=== PATIENT | female | born 1960 | race Caucasian/White ===

== ENCOUNTER 2022-06-19 18:14 | Emergency (ER) | payer OTHER ==
--- NOTE | 2022-06-19 20:28 | ERPHSYRPT ---
- History of Present Illness Historian: patient Exam Limitations: no limitations Patient Subjective Stated Complaint: pt states "My stomach has been hurtin off and on. I think it is my gallbladder." Triage Nursing Assessment: Pt alert and oriented x3, pt alert and oriented x3, skin pwd, pt c/o diffuse abd pain, diarrhea and back pain intermittently for a week, pt afebrile, pt has hx of appendectomy, pt slightly hypertensive in triage, pt's last meal was 1730 Physician History: 61 yo wf w diffuse abdominal pain x 10 days. Pain is sharp/burning and 7/10 at present. It is better in L lateral decubitus position. She has had nausea/diarrhea wo vomiting. She denies melena/hematochezia/fever/dysuria/hematuria. Pt states that she has some pain in her back and occ has sub-xyphoid pain. She has had an appy and BTL. Timing/Duration: other (10 days) Activities at Onset: rest Quality: burning, sharpness Abdominal Pain Onset Location: generalized abdomen Pain Radiation: back Severity of Pain-Max: severe Severity of Pain-Current: moderate Modifying Factors: Improves With: other (Better w L lateral decubitus position) Associated Symptoms: back, diarrhea, nausea, No chest pain, No diaphoresis, No fever/chills, No fatigue, No headache, No heartburn, No loss of appetite, No neck pain, No rash, No shortness of breath, No syncope, No vomiting, No weakness Previous symptoms: no prior history Allergies/Adverse Reactions: Sulfa (Sulfonamide Antibiotics) Allergy (Mild, Verified 06/19/22 19:19) Hives Home Medications: ALPRAZolam [Alprazolam] 0.5 mg PO TID 06/19/22 [History] Amlodipine Besylate/Benazepril [Amlodipine-Benazepril 2.5-10] 2.5 mg PO DAILY 06/19/22 [History] Aspirin 81 gm Chew [Baby Aspirin 81 mg Chew] 81 mg PO DAILY 06/19/22 [History] Atorvastatin Calcium [Lipitor 20MG Tablet] 20 mg PO DAILY 06/19/22 [History] Carvedilol 3.125 mg [Coreg 3.125 MG] 3.125 mg PO DAILY 06/19/22 [History] Gemfibrozil [Lopid] 600 mg PO BID 06/19/22 [History] Mecobalamin [B-12] 500 mcg PO DAILY 06/19/22 [History] Oxybutynin Chloride Xl 5 mg [Ditropan XL 5 MG] 5 mg PO DAILY 06/19/22 [History] Potassium Citrate [Potassium] 99 mg PO BID 06/19/22 [History] glyBURIDE [Glyburide] 2.5 mg PO DAILY 06/19/22 [History] Hx Tetanus, Diphtheria Vaccination/Date Given: No Hx Influenza Vaccination/Date Given: Yes Hx Pneumococcal Vaccination/Date Given: No Immunizations Up to Date: Yes Travel Risk - International Travel Have you traveled outside of the country in past 3 weeks: No - Coronavirus Screening Are you exhibiting any of the following symptoms?: No Close contact with a COVID-19 positive Pt in past 14-21 Days: No - Vaccine Status Have you recieved a Covid-19 vaccination: Yes [employer]: [employer] - Vaccination Dates Date of 2cond Vaccination (if applicable): 2019 - Review of Systems Constitutional: No Symptoms Eyes: No Symptoms Ears, Nose, & Throat: No Symptoms Respiratory: No Symptoms Cardiac: No Symptoms Abdominal/Gastrointestinal: No Symptoms, Abdominal Pain, Nausea, Diarrhea, No Vomiting Genitourinary Symptoms: No Symptoms Musculoskeletal: No Symptoms, Back Pain Skin: No Symptoms Neurological: No Symptoms Psychological: No Symptoms Endocrine: No Symptoms Hematologic/Lymphatic: No Symptoms Immunological/Allergic: No Symptoms - Past Medical History Neurological History: No Pertinent History ENT History: No Pertinent History Cardiac History: High Cholesterol, Hypertension Respiratory History: No Pertinent History Endocrine Medical History: Diabetes Type II Musculoskeletal History: No Pertinent History GI Medical History: GERD History: No Pertinent History Psycho-Social History: Anxiety Female Reproductive Disorders: No Pertinent History - Past Surgical History Past Surgical History: Yes Neuro Surgical History: No Pertinent History Cardiac: No Pertinent History Respiratory: No Pertinent History Gastrointestinal: Appendectomy Genitourinary: No Pertinent History Musculoskeletal: No Pertinent History Female Surgical History: Tubal Ligation - Social History Smoking Status: Never smoker Exposure to second hand smoke: No Drug Use: none Patient Lives Alone: No Significant Family History: no pertinent family hx - Nursing Vital Signs Nursing Vital Signs: Initial Vital Signs Temperature 98.7 F 06/19/22 19:15 Pulse Rate 84 06/19/22 19:15 Respiratory Rate 18 06/19/22 19:15 Blood Pressure 166/91 06/19/22 19:15 O2 Sat by Pulse Oximetry 96 06/19/22 19:15 Pain Scale Pain Intensity 5 Hypertensive - Physical Exam General Appearance: no apparent distress Eye Exam: PERRL/EOMI, eyes nml inspection Ears, Nose, Throat Exam: normal ENT inspection, TMs normal, pharynx normal, moist mucous membranes Neck Exam: normal inspection, non-tender, supple, full range of motion, No meningismus, No mass, No Brudzinski, No Kernig's, No carotid bruit Respiratory Exam: normal breath sounds, lungs clear, airway intact, No r espiratory distress Cardiovascular Exam: regular rate/rhythm, normal heart sounds, normal peripheral pulses, capillary refill <2 sec, No murmur Gastrointestinal/Abdomen Exam: soft, normal bowel sounds, tenderness (Mild diffuse TTP wo guarding or rebound) Back Exam: normal inspection, normal range of motion, CVA tenderness, No vertebral tenderness Extremity Exam: normal inspection, normal range of motion Neurologic Exam: alert, oriented x 3, cooperative, floor polisher II-XII nml as tested, normal mood/affect, nml cerebellar function, nml station & gait, sensation nml, No motor deficits, No sensory deficit Skin Exam: normal color, warm, dry Lymphatic Exam: No adenopathy SpO2 Interpretation: normal SpO2: 95 O2 Delivery: Room Air - Course Nursing assessment & vital signs reviewed: Yes EKG Interpreted by Me: RATE (NSR/Rate 67/Normal QT-QTc/Low voltage/No acute ST segment changes) - CT Exams Abdomen/Pelvis CT Interpretation: Discussed w/radiologist (Small hiatal hernia/colonic diarrhea/1cm hepatic cyst) Ordered Tests: Active Orders 24 hr Category Date Time Status EKG-ER Only STAT Care 06/19/22 20:21 Completed ABDOMEN AND PELVIS W/0 CONTRAS [CT] Stat Exams 06/19/22 20:22 Taken AMYLASE Stat Lab 06/19/22 20:30 Completed CBC W DIFF Stat Lab 06/19/22 20:30 Completed CMP Stat Lab 06/19/22 20:30 Completed CULTURE,URINE Stat Lab 06/19/22 20:22 Received LIPASE Stat Lab 06/19/22 20:30 Completed TROPONIN Q4H Lab 06/19/22 20:30 Completed UA W/RFX CULTURE Stat Lab 06/19/22 20:22 Completed Medication Summary Discontinued Medications Generic Name Dose Route Start Last Admin Trade Name Lina PRN Reason Stop Dose Admin Fentanyl Citrate 50 mcg 06/19/22 20:21 06/19/22 20:36 Fentanyl Citrate 100 Mcg/2 Ml* Vial IV 06/19/22 20:22 50 mcg STAT ONE Administration Fentanyl Citrate Confirm 06/19/22 20:34 Fentanyl Citrate 100 Mcg/2 Ml* Vial Administered 06/19/22 20:35 Dose 100 mcg .ROUTE .STK-MED ONE Ondansetron HCl 4 mg 06/19/22 20:22 06/19/22 20:36 Ondansetron Hcl 4 Mg/2 Ml Vial IV 06/19/22 20:23 4 mg STAT ONE Administration Ondansetron HCl Confirm 06/19/22 20:34 Ondansetron Hcl 4 Mg/2 Ml Vial Administered 06/19/22 20:35 Dose 4 mg .ROUTE .[employer] ONE Lab/Rad Data: Laboratory Result Diagrams 06/19/22 20:30 06/19/22 20:30 Laboratory Results 06/19/22 06/19/22 06/19/22 Range/Units 20:58 20:30 20:30 WBC (4.0-10.5) x10^3/uL RBC (4.1-5.4) x10^6/uL Hgb (12.0-16.0) g/dL Hct (35-47) % MCV (78-100) fL MCH (26-32) pg MCHC (32-36) g/dL RDW (11.5-14.0) % Plt Count (150-450) x10^3/uL MPV (7.5-11.0) fL Gran % (36.0-66.0) % Immature Gran % (Auto) (0.00-0.4) % Nucleat RBC Rel Count (0.00-0.1) % Eos # (Auto) (0-0.5) x10^3/uL Immature Gran # (Auto) (0.00-0.03) x10^3u/L Absolute Lymphs (auto) (1.0-4.6) x10^3/uL Absolute Monos (auto) (0.0-1.3) x10^3/uL Absolute Nucleated RBC (0.00-0.01) x10^3u/L Lymphocytes % (24.0-44.0) % Monocytes % (0.0-12.0) % Eosinophils % (0.00-5.0) % Basophils % (0.0-0.4) % Absolute Granulocytes (1.4-6.9) x10^3/uL Basophils # (0-0.4) x10^3/uL Sodium 140 (137-145) mmol/L Potassium 4.1 (3.5-5.1) mmol/L Chloride 100 (98-107) mmol/L Carbon Dioxide 33 H (22-30) mmol/L Anion Gap 10.6 (5-15) MEQ/L BUN 13 (7-17) mg/dL Creatinine 1.04 (0.52-1.04) mg/dL Estimated GFR 57.6 ML/MIN Glucose 98 (74-106) mg/dL Calcium 9.9 (8.4-10.2) mg/dL Total Bilirubin 0.80 (0.2-1.3) mg/dL AST 39 H (14-36) U/L ALT 25 (0-35) U/L Alkaline Phosphatase 156 H (38-126) U/L Troponin I < 0.012 (0.000-0.034) ng/mL Serum Total Protein 7.7 (6.3-8.2) g/dL Albumin 4.3 (3.5-5.0) g/dL Amylase 68 (30-110) U/L Lipase 68 (23-300) U/L Urinalys Dipstick Clnc Urine Color (YELLOW) Urine Appearance (CLEAR) Urine pH (5-6) Ur Specific [place] (1.005-1.025) POC Urine Protein Conf (Negative) Urine Ketones (NEGATIVE) Urine Nitrite (NEGATIVE) Urine Bilirubin (NEGATIVE) Urine Urobilinogen (0-1) mg/dL Urine Leukocytes (NEGATIVE) Urine WBC (Auto) (0-5) /HPF Urine RBC (Auto) (0-2) /HPF U Epithel Cells (Auto) (FEW) /HPF Urine Bacteria (Auto) (NEGATIVE) /HPF Urine RBC (0-5) [place]/ul Urine Mucus (Auto) (NEGATIVE) /HPF Ur Culture Indicated? Urine Glucose (NEGATIVE) mg/dL Influenza Type A Ag NEGATIVE (NEGATIVE) Influenza Type B Ag NEGATIVE (NEGATIVE) RSV (PCR) NEGATIVE (Negative) SARS-CoV-2 (PCR) NEGATIVE (NEGATIVE) Slides for Path Review 06/19/22 06/19/22 Range/Units 20:30 20:22 WBC 12.7 H (4.0-10.5) x10^3/uL RBC 4.82 (4.1-5.4) x10^6/uL Hgb 15.1 (12.0-16.0) g/dL Hct 45.2 (35-47) % MCV 93.8 (78-100) fL MCH 31.3 (26-32) pg MCHC 33.4 (32-36) g/dL RDW 12.2 (11.5-14.0) % Plt Count 355 (150-450) x10^3/uL MPV 10.2 (7.5-11.0) fL Gran % 44.7 (36.0-66.0) % Immature Gran % (Auto) 0.3 (0.00-0.4) % Nucleat RBC Rel Count 0.0 (0.00-0.1) % Eos # (Auto) 3.32 H (0-0.5) x10^3/uL Immature Gran # (Auto) 0.04 H (0.00-0.03) x10^3u/L Absolute Lymphs (auto) 2.70 (1.0-4.6) x10^3/uL Absolute Monos (auto) 0.84 (0.0-1.3) x10^3/uL Absolute Nucleated RBC 0.00 (0.00-0.01) x10^3u/L Lymphocytes % 21.3 L (24.0-44.0) % Monocytes % 6.6 (0.0-12.0) % Eosinophils % 26.2 H (0.00-5.0) % Basophils % 0.9 (0.0-0.4) % Absolute Granulocytes 5.66 (1.4-6.9) x10^3/uL Basophils # 0.11 (0-0.4) x10^3/uL Sodium (137-145) mmol/L Potassium (3.5-5.1) mmol/L Chloride (98-107) mmol/L Carbon Dioxide (22-30) mmol/L Anion Gap (5-15) MEQ/L BUN (7-17) mg/dL Creatinine (0.52-1.04) mg/dL Estimated GFR ML/MIN Glucose (74-106) mg/dL Calcium (8.4-10.2) mg/dL Total Bilirubin (0.2-1.3) mg/dL AST (14-36) U/L ALT (0-35) U/L Alkaline Phosphatase (38-126) U/L Troponin I (0.000-0.034) ng/mL Serum Total Protein (6.3-8.2) g/dL Albumin (3.5-5.0) g/dL Amylase (30-110) U/L Lipase (23-300) U/L Urinalys Dipstick Clnc MAIN LAB Urine Color YELLOW (YELLOW) Urine Appearance SLIGHTLY CLOUDY (CLEAR) Urine pH 7.0 (5-6) Ur Specific [place] 1.010 (1.005-1.025) POC Urine Protein Conf NEGATIVE (Negative) Urine Ketones NEGATIVE (NEGATIVE) Urine Nitrite NEGATIVE (NEGATIVE) Urine Bilirubin NEGATIVE (NEGATIVE) Urine Urobilinogen 0.2 (0-1) mg/dL Urine Leukocytes MODERATE (NEGATIVE) Urine WBC (Auto) 26-50 (0-5) /HPF Urine RBC (Auto) 6-10 (0-2) /HPF U Epithel Cells (Auto) RARE (FEW) /HPF Urine Bacteria (Auto) MODERATE (NEGATIVE) /HPF Urine RBC TRACE-LYSED (0-5) [place]/ul Urine Mucus (Auto) SLIGHT (NEGATIVE) /HPF Ur Culture Indicated? YES Urine Glucose NEGATIVE (NEGATIVE) mg/dL Influenza Type A Ag (NEGATIVE) Influenza Type B Ag (NEGATIVE) RSV (PCR) (Negative) SARS-CoV-2 (PCR) (NEGATIVE) Slides for Path Review YES - Progress Progress: improved Progress Note: 06/19/22 22:40 Pain greatly improved w 50mcg IV Fentanyl/4mg IV Zofran Counseled pt/family regarding: lab results, diagnosis, need for follow-up, rad results - Departure Departure Disposition: Home Clinical Impression: UTI (urinary tract infection), Abdominal pain Condition: Stable Critical Care Time: No Referrals: LEN ARCHULETA NP [Primary Care Provider] - Follow up/PCP as directed Instructions: Urinary Tract Infection, Adult (DC), Severe Abdominal Pain Additional Instructions: Follow up with your family MD in 1-2 days Start Macrobid twice a day Return to ER for increasing pain or temperature greater than 100.5 Prescriptions: Nitrofurantoin Macro 100 mg [Macrobid 100MG Capsule] 100 mg PO BID 5 Days #10
[2022-06-19] MEDS ORDERED: SUBLIMAZE 100 MCG/2 ML ONE (20:34)
[2022-06-19] MEDS ORDERED: Zofran 4 MG/2 ML VIAL ONE (20:34)
[2022-06-19] MEDS: SUBLIMAZE 100 MCG/2 ML IV ONE (20:36)
[2022-06-19] MEDS: Zofran 4 MG/2 ML VIAL IV ONE (20:36)
[2022-06-19 20:41] LABS: Absolute Neutrophil Ct (ANC) 5.66 x10^3/uL (1.4-6.9); Basophil (Absolute #) 0.11 x10^3/uL (0-0.4); Eosinophil % 26.2 % (0.00-5.0); Eosinophil (Absolute #) 3.32 x10^3/uL (0-0.5); Hematocrit 45.2 % (35-47); Hemoglobin 15.1 g/dL (12.0-16.0); Lymphocytes % 21.3 % (24.0-44.0); Mean Cell Volume 93.8 fL (78-100); Mean Corpuscular Hemoglobin 31.3 pg (26-32); Mean Corpuscular Hgb Concent. 33.4 g/dL (32-36); Mean Platelet Volume 10.2 fL (7.5-11.0); Monocyte (Absolute #) 0.84 x10^3/uL (0.0-1.3); Monocytes % 6.6 % (0.0-12.0); Neutrophil % 44.7 % (36.0-66.0); Platelet Count 355 x10^3/uL (150-450); Red Blood Count 4.82 x10^6/uL (4.1-5.4); Red Cell Distribution Width 12.2 % (11.5-14.0); White Blood Count 12.7 x10^3/uL (4.0-10.5)
[2022-06-19 20:45] LABS: Bacteria MODERATE /HPF (NEGATIVE); Epithelial Cells RARE /HPF (FEW); Mucus SLIGHT /HPF (NEGATIVE); WBC 26-50 /HPF (0-5)
[2022-06-19 20:49] LABS: Appearance SLIGHTLY CLOUDY (CLEAR); Bilirubin NEGATIVE (NEGATIVE); Glucose NEGATIVE (NEGATIVE); Ketones NEGATIVE (NEGATIVE); RBC TRACE-LYSED Ery/ul (0-5)
[2022-06-19 20:50] LABS: Nitrite NEGATIVE (NEGATIVE); Protein,Urine Dip NEGATIVE (Negative); Urine Cultured Indicated? YES; Urobilinogen 0.2 mg/dL (0-1)
[2022-06-19 20:52] LABS: Dipstick done @ ? MAIN LAB
[2022-06-19 20:55] LABS: ALBUMIN 4.3 g/dL (3.5-5.0); ANION GAP 10.6 MEQ/L (5-15); BILIRUBIN,TOTAL 0.8 mg/dL (0.2-1.3); Calcium 9.9 mg/dL (8.4-10.2); Creatinine 1 1.04 mg/dL (0.52-1.04); EST GLOMERULAR FILTRATION RATE 57.6 ML/MIN; Potassium 4.1 mmol/L (3.5-5.1); Total Protein 7.7 g/dL (6.3-8.2)
[2022-06-19 21:38] LABS: INFLUENZA A NEGATIVE (NEGATIVE); INFLUENZA B NEGATIVE (NEGATIVE); RESPIRATORY SYNCTIAL VIRUS NEGATIVE (Negative); SARS-CoV-2 Xpert Express NEGATIVE (NEGATIVE)
[2022-06-19 22:11] VITALS: BP 124/64; PULSE 55
[2022-06-19 22:41] VITALS: O2SAT 95
[2022-06-19 23:44] LABS: Slide Review 1 YES
--- NOTE | 2022-06-20 08:47 | XRAY ---
Indication: Upper abdomen/flank pain. Diarrhea, nausea, and vomiting. Multiple contiguous axial images obtained through the abdomen and pelvis without contrast. Comparison: None Lung bases clear. Heart not enlarged. Small hiatal hernia. Noncontrasted stomach and bowel loops appear nonobstructed. Appendectomy reported. Mild fluid distended colon throughout favoring diarrhea. No free fluid/air. 2 small right lobe hepatic cysts, largest 9 mm. Remaining liver, gallbladder, pancreas, spleen, adrenal glands, kidneys, ureters, bladder, uterus, and aorta are unremarkable for noncontrast exam. Osseous structures intact with minimal/mild degenerative changes throughout the thoracolumbar spine. Small fatty left inguinal hernia. Impression: 1. Small hiatal hernia, colonic diarrhea, hepatic cysts, degenerative spondylosis, and small fatty left inguinal hernia. 2. Remaining CT abdomen/pelvis without contrast exam is negative.
== END 2022-06-19 22:53 | disposition home or self-care (01) ==
LOC: ED 18:14
DX: N39.0 Urinary tract infection, site not specified (principal); R10.84 Generalized abdominal pain; R11.0 Nausea; R19.7 Diarrhea, unspecified; E78.5 Hyperlipidemia, unspecified; I10 Essential (primary) hypertension; E11.9 Type 2 diabetes mellitus without complications; Z79.84 Long term (current) use of oral hypoglycemic drugs; Z79.899 Other long term (current) drug therapy
CPT/HCPCS: 0241U; 36000; 36415; 74176; 80053; 81015; 82150; 83690; 84484; 85025; 87086; 93005; 96374; 96375; 99284; J2405; J3010